=== PATIENT | male | born 1995 | race Caucasian/White ===

== ENCOUNTER 2019-06-01 23:34 | Emergency (ER) | payer MEDICAID ==
[~2019-06-01] VITALS: Ht 167.6 cm; Wt 60.3 kg
[2019-06-01 23:53] VITALS: BP 113/76
[2019-06-02] MEDS ORDERED: IBUPROFEN 400 MG TABLET PO ONE
[2019-06-02] MEDS ORDERED: IBUPROFEN 400 MG TABLET ONE (00:02)
== END 2019-06-02 00:10 | disposition home or self-care (01) ==
LOC: ER 23:41
DX: M62.830 Muscle spasm of back (principal); M54.2 Cervicalgia; V49.49XA Driver injured in collision with other motor vehicles in traffic accident, initial encounter; Y93.89 Activity, other specified; Y92.413 State road as the place of occurrence of the external cause; Y99.8 Other external cause status

== ENCOUNTER 2021-02-16 13:59 | Emergency (ER) | payer MEDICAID, OTHER ==
[~2021-02-16] VITALS: Ht 175.3 cm; Wt 66.2 kg
[2021-02-16 14:04] VITALS: BP 112/65
== END 2021-02-16 15:22 | disposition home or self-care (01) ==
LOC: ER 14:03
DX: S62.232A Other displaced fracture of base of first metacarpal bone, left hand, initial encounter for closed fracture (principal); X58.XXXA Exposure to other specified factors, initial encounter; Y93.75 Activity, martial arts; Y92.89 Other specified places as the place of occurrence of the external cause; Y99.8 Other external cause status
CPT/HCPCS: 73140-TC

== ENCOUNTER 2021-05-04 13:50 | Emergency (ER) | payer OTHER ==
[~2021-05-04] VITALS: Ht 175.3 cm; Wt 66.7 kg
[2021-05-04 14:59] VITALS: BP 118/78
== END 2021-05-04 16:25 | disposition home or self-care (01) ==
LOC: ER 13:55
DX: S63.682A Other sprain of left thumb, initial encounter (principal); X58.XXXA Exposure to other specified factors, initial encounter; Y93.89 Activity, other specified; Y92.89 Other specified places as the place of occurrence of the external cause; Y99.8 Other external cause status
CPT/HCPCS: 73130-TC

== ENCOUNTER 2021-09-15 21:04 | Emergency (ER) | payer OTHER ==
[~2021-09-15] VITALS: Ht 175.3 cm; Wt 66.2 kg
[2021-09-15 21:15] VITALS: BP 131/71
--- NOTE | 2021-09-15 21:25 | NUR ---
[employer]
== END 2021-09-15 22:29 | disposition home or self-care (01) ==
LOC: ER 21:07
DX: S99.921A Unspecified injury of right foot, initial encounter (principal); W51.XXXA Accidental striking against or bumped into by another person, initial encounter; Y93.75 Activity, martial arts; Y92.89 Other specified places as the place of occurrence of the external cause; Y99.8 Other external cause status
CPT/HCPCS: 73630-TC

== ENCOUNTER 2024-02-21 23:40 | Emergency (ER) | payer OTHER ==
[~2024-02-21] VITALS: Ht 177.8 cm; Wt 65.8 kg
[2024-02-22] MEDS ORDERED: KETOROLAC TROMETHAMINE 15 MG/ML VIAL ONE (01:31)
[2024-02-22] MEDS: IV NS 0.9% 1,000 ML BAG IV ONE (01:44)
[2024-02-22] MEDS: KETOROLAC TROMETHAMINE 15 MG/ML VIAL IV ONE (01:45)
[2024-02-22 01:53] LABS: BASOPHILS # (AUTO) 0.1 K/uL (0.0-0.2); BASOPHILS % (AUTO) 0.8 % (0.0-2.0); EOSINOPHILS # (AUTO) 0.3 K/uL (0.0-0.7); EOSINOPHILS % (AUTO) 3.7 % (0.0-6.0); HEMATOCRIT 43 % (39-51); HEMOGLOBIN 14.3 g/dL (13.5-17.5); LYMPHOCYTES # (AUTO) 2.7 K/uL (0.8-4.8); LYMPHOCYTES % (AUTO) 38.5 % (20.0-44.0); MEAN CORPUSCULAR HEMOGLOBIN 29 PG (26.0-33.0); MEAN CORPUSCULAR HGB CONC 34 g/dl (31.0-36.0); MEAN CORPUSCULAR VOLUME 87 fL (80-96); MONOCYTES # (AUTO) 0.7 K/uL (0.1-1.30); MONOCYTES % (AUTO) 9.7 % (2.0-12.0); NEUTROPHILS # (AUTO) 3.3 K/uL (1.8-8.9); NEUTROPHILS % (AUTO) 47.3 % (43.0-81.0); PLATELET COUNT (AUTO) 252 K/uL (150-450); RED BLOOD CELL COUNT(AUTO) 4.95 MIL/uL (4.5-6.0); RED CELL DISTRIBUTION WIDTH 13.5 % (11.5-15.0)
[2024-02-22 02:00] VITALS: TEMP 98.3
[2024-02-22] MEDS: MECLIZINE HCL 12.5 MG TABLET PO ONE (02:02)
[2024-02-22 02:21] LABS: CALCIUM, SERUM 9.6 mg/dL (8.5-10.1); CARBON DIOXIDE 31 mmol/L (21-32); CHLORIDE 99 mmol/L (98-107); CREATININE 1.2 mg/dL (0.6-1.3); GLUCOSE 97 mg/dL (74-106); POTASSIUM 3.9 mmol/L (3.5-5.1); SODIUM SERUM 137 mmol/L (136-145); UREA NITROGEN, BLOOD 13 mg/dL (7-18)
[2024-02-22 02:29] LABS: ALANINE AMINOTRANSFERASE 26 U/L (12-78); ALBUMIN 4.2 g/dL (3.4-5.0); ALKALINE PHOSPHATASE 53 U/L (46-116); ASPARTATE AMINOTRANSFERASE 15 U/L (15-37); BILIRUBIN,DIRECT 0.1 mg/dL (0.0-0.2); BILIRUBIN,TOTAL 0.3 mg/dL (0.2-1.0); TOTAL PROTEIN, SERUM 7.8 g/dL (6.4-8.2)
[2024-02-22 02:32] LABS: MAGNESIUM 2.2 mg/dL (1.8-2.4)
[2024-02-22 02:34] LABS: THYROID STIMULATING HORMONE 6.021 uIU/mL (0.358-3.74)
[2024-02-22 02:49] VITALS: BP 118/74; O2SAT 100
== END 2024-02-22 02:49 | disposition home or self-care (01) ==
LOC: ER 23:44
DX: R00.2 Palpitations (principal)
CPT/HCPCS: 99285; 96360; 71045; 93005; 85025; 80048; 80076; 83735; 36415; 84439; 84443; 84484; 83880; J8597; J7030; A4223; J1885

== ENCOUNTER 2024-09-11 17:24 | Emergency (ER) | payer SELFPAY ==
[~2024-09-11] VITALS: Ht 175.3 cm; Wt 65.8 kg
[2024-09-11 18:40] VITALS: BP 106/88; TEMP 98.2
[2024-09-11 20:11] VITALS: O2SAT 99
== END 2024-09-11 20:13 | disposition home or self-care (01) ==
LOC: ER 17:25
DX: M25.572 Pain in left ankle and joints of left foot (principal)
CPT/HCPCS: 73610-TC